=== PATIENT | male | born 1955 | race American Indian/Alaskan Native ===

== ENCOUNTER 2021-11-23 01:32 | Emergency (ER) | payer OTHER, MEDICARE ==
--- NOTE | 2021-11-23 04:10 | Emergency Department Report ---
ED Medical Clearance [facility] - General Chief complaint: Medical Clearance Stated complaint: LOW SP02 Time Seen by Provider: 11/23/21 04:03 Source: patient Mode of arrival: Stretcher Allergies/Adverse reactions: Allergies Allergy/AdvReac Type Severity Reaction Status Date / Time No Known Allergies Allergy Unverified 11/23/21 02:09 ED Review of Systems ROS: Stated complaint: LOW SP02 Other details as noted in HPI ED Past Medical Hx - Past Medical History Previous Medical History?: Yes Hx HIV: Yes - Surgical History Past Surgical History?: No - Social History Smoking Status: Current Every Day Smoker Substance Use Type: None ED Physical Exam - General Limitations: No Limitations General appearance: alert, in no apparent distress - Head Head exam: Present: atraumatic, normocephalic - ENT ENT exam: Present: mucous membranes moist - Neck Neck exam: Present: normal inspection - Respiratory Respiratory exam: Present: normal lung sounds bilaterally. Absent: respiratory distress, wheezes, rales, rhonchi - Cardiovascular Cardiovascular Exam: Present: regular rate, normal rhythm. Absent: systolic murmur, diastolic murmur, rubs, gallop - GI/Abdominal GI/Abdominal exam: Present: soft. Absent: distended, tenderness - Rectal Rectal exam: Present: deferred - Extremities Exam Extremities exam: Present: normal inspection, full ROM. Absent: tenderness, pedal edema - Back Exam Back exam: Present: normal inspection, full ROM. Absent: tenderness ED Course Vital Signs 11/23/21 02:00 Temperature 98 F Pulse Rate 81 Respiratory 18 Rate Blood Pressure 108/67 ED Disposition Clinical Impression: Oxygen decrease, Medical clearance for psychiatric admission Disposition: [address] [place] [address] Is pt being admited?: No Condition: Stable Additional Instructions: The patient has been observed for several hours now and his saturation has remained normal. On examination his lungs are clear and there is no evidence that there is a condition which is causing the abnormally low saturation
[2021-11-23 05:40] VITALS: BP 124/68
== END 2021-11-23 09:34 ==
LOC: ED 01:32
DX: Z04.6 Encounter for general psychiatric examination, requested by authority (principal); R09.02 Hypoxemia; F17.200 Nicotine dependence, unspecified, uncomplicated
CPT/HCPCS: 99284